=== PATIENT | male | born 1945 | race Caucasian/White ===

== ENCOUNTER 2022-06-25 13:10 | Emergency (ER) | payer MEDICARE, OTHER ==
[2022-06-25 13:52] VITALS: BP 140/89; O2SAT 96
--- NOTE | 2022-06-25 14:21 | ERPHSYRPT ---
- History of Present Illness Source: patient Exam Limitations: no limitations Patient Subjective Stated Complaint: States he cut his finger today just prior to arrival to ED. States he cut it while working on a door; states knife was not jagged. Triage Nursing Assessment: Patient ambulated back to ED with a rag wrapped around his finger (left hand, 2nd digit). Rag removed and active bleeding noted from a 3cm length cut in his finger. CMS to that finger WNL. Area cleansed with sterile water and hibicleanse. 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 Pt denies other/previous injury. He needs a Tdap. Good distal capillary return and sensation. Lac 3.5cm. No other complaints at this time. Occurred: just prior to arrival Method of Injury: incised Quality: constant, sharpness Severity of Pain-Max: mild Severity of Pain-Current: mild Extremities Pain Location: 2nd finger: left Modifying Factors: Improves With: nothing, movement Associated Symptoms: none Allergies/Adverse Reactions: No Known Drug Allergies Allergy (Verified 06/25/22 13:32) Home Medications: Ezetimibe 10 mg [Zetia 10 MG] 1 tab PO DAILY 06/25/22 [History] Nebivolol HCl 5 MG [Bystolic 5 MG] 1 tab PO DAILY 06/25/22 [History] Omeprazole Magnesium 40 mg PO DAILY 06/25/22 [History] Hx Tetanus, Diphtheria Vaccination/Date Given: Yes (Unsure about tetanus) Hx Influenza Vaccination/Date Given: Yes Hx Pneumococcal Vaccination/Date Given: No Immunizations Up to Date: Yes Travel Risk - International Travel Have you traveled outside of the country in past 3 weeks: No - Coronavirus Screening Are you exhibiting any of the following symptoms?: No Close contact with a COVID-19 positive Pt in past 14-21 Days: No - Vaccine Status Have you recieved a Covid-19 vaccination: Yes 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 - Vaccination Dates Date of 2cond Vaccination (if applicable): 2020 - Review of Systems Constitutional: No Symptoms Eyes: No Symptoms Ears, Nose, & Throat: No Symptoms Respiratory: No Symptoms Cardiac: No Symptoms Abdominal/Gastrointestinal: No Symptoms Genitourinary Symptoms: No Symptoms Skin: No Symptoms Neurological: No Symptoms Psychological: No Symptoms Endocrine: No Symptoms Hematologic/Lymphatic: No Symptoms Immunological/Allergic: No Symptoms - Past Medical History Pertinent Past Medical History: Yes Cardiac History: Hypertension History: Other Other Medical History: Kidney Stones - Past Surgical History Past Surgical History: Yes Neuro Surgical History: No Pertinent History Cardiac: Cardiac Catheterization, Cardiac Stent Respiratory: No Pertinent History Gastrointestinal: No Pertinent History Genitourinary: No Pertinent History Musculoskeletal: No Pertinent History Male Surgical History: No Pertinent History Other Surgical History: Lithotripse - Social History Smoking Status: Never smoker Exposure to second hand smoke: No Drug Use: none - Nursing Vital Signs Nursing Vital Signs: Initial Vital Signs Temperature 98 F 06/25/22 13:33 Pulse Rate 73 06/25/22 13:33 Respiratory Rate 18 06/25/22 13:33 Blood Pressure 140/89 06/25/22 13:33 O2 Sat by Pulse Oximetry 96 06/25/22 13:33 Pain Scale Pain Intensity 0 Hypertensive - Physical Exam General Appearance: no apparent distress Eyes, Ears, Nose, Throat Exam: normal ENT inspection, TMs normal, pharynx normal, moist mucous membranes Neck Exam: normal inspection, non-tender, supple, full range of motion, No Brudzinski, No Kernig's, No meningismus Cardiovascular/Respiratory Exam: normal breath sounds, regular rate/rhythm, heart sounds normal Abdominal Exam: non-tender, soft Back Exam: normal inspection Shoulder Exam: normal inspection Elbow/Forearm Exam: normal inspection Wrist Exam: normal inspection Hand Exam: laceration (3.5 lac L 2nd digit dorsally-proximally/Good distal capillary return and sensation/FROM) DTR - Upper Extremity Exam: bicep (R): 2+, bicep (L): 2+ Neuro/Tendon Exam: normal sensation, normal motor functions, normal tendon functions, responds to pain, no evidence tendon injury, No motor deficit, No sensory deficit Mental Status Exam: alert, oriented x 3, cooperative Skin Exam: normal color, warm, dry SpO2 Interpretation: normal SpO2: 96 O2 Delivery: Room Air Procedures - Laceration/Wound Repair Left Proximal Finger Time of Procedure: 14:16 Wound Location: Left Wound Length (cm): 3.5 Wound's Depth, Shape: flap Wound Explored: clean Irrigated: Yes Hibiclens Prep: Yes Anesthesia: digital block, 1% Lidocaine Volume Anesthetic (ccs): 4 Wound Repaired With: sutures Suture Size/Type: 4-0 (4.0 Ethilon x9) Number of Sutures: 9 Layer Closure?: No Sterile Dressing Applied?: Yes - Course Nursing assessment & vital signs reviewed: Yes Ordered Tests: Medication Summary Discontinued Medications Generic Name Dose Route Start Last Admin Trade Name Amrita PRN Reason Stop Dose Admin Bacitracin Zinc 0.9 each 06/25/22 14:25 06/25/22 14:30 Bacitracin Packet 1 Each Pckt TP 06/25/22 14:26 0.9 each STAT ONE Administration Bacitracin Zinc Confirm 06/25/22 14:26 Bacitracin Packet 1 Each Pckt Administered 06/25/22 14:27 Dose 1 each .ROUTE .STK-MED ONE Diphtheria/Tetanus/Acell Pertussis 0.5 ml 06/25/22 14:24 06/25/22 14:29 Tdap --Diph,Pertuss(Acell),Tet Vac/Pf 0.5 Ml Vial IM 06/25/22 14:25 0.5 ml .ONCE ONE Administration Diphtheria/Tetanus/Acell Pertussis Confirm 06/25/22 14:27 Tdap --Diph,Pertuss(Acell),Tet Vac/Pf 0.5 Ml Vial Administered 06/25/22 14:28 Dose 0.5 ml IM .STK-MED ONE - Progress Progress: improved Progress Note: 06/25/22 14:22 Tdap given Counseled pt/family regarding: diagnosis, need for follow-up - Departure Departure Disposition: Home Clinical Impression: Laceration Condition: Stable Critical Care Time: No Referrals: TIFFANIE MENDOZA [NON-STAFF PHY W/O PRIVILEGES] - Follow up/PCP as directed Instructions: Wound Care (DC), Laceration Repair With Stitches (DC) Additional Instructions: Keep laceration dry for 2 days, then gently wash 1-2 times a day with soap/water Sutures out in 10 days Watch for signs of infection-Increasing redness/Pus/Increasing swelling/Temperature greater than 100.5
[2022-06-25] MEDS ORDERED: Adacel Vial IM ONE ×2 (14:24→14:27)
[2022-06-25] MEDS ORDERED: BACIGUENT PACKET TP ONE (14:25)
[2022-06-25] MEDS ORDERED: BACIGUENT PACKET ONE (14:26)
[2022-06-25 14:33] VITALS: PULSE 74
== END 2022-06-25 14:44 | disposition home or self-care (01) ==
LOC: ED 13:10
DX: S61.211A Laceration without foreign body of left index finger without damage to nail, initial encounter (principal); W26.0XXA Contact with knife, initial encounter; I10 Essential (primary) hypertension; Z79.899 Other long term (current) drug therapy
CPT/HCPCS: 12002; 90471; 90715; 99282; A9270-GY